=== PATIENT | male | born 1965 | race Caucasian/White ===

== ENCOUNTER 2020-09-06 20:49 | Inpatient (IN) | payer BC ==
[2020-09-06] MEDS ORDERED: SODIUM CHLORIDE 0.9% 500 ML INFUS.BAG IV ONE ×2 (20:57→23:39)
[2020-09-06 21:59] LABS: VENOUS BASE EXCESS -8.1 mmol/L (-2-2); VENOUS O2 SATURATION 55.8 % (70-80); VENOUS PCO2 53.9 mmHg (38-52); VENOUS PH 7.203 (7.310-7.410)
[2020-09-06 22:25] LABS: INR 1.46 (0.83-1.09); PROTHROMBIN TIME (PATIENT) 17.5 SEC (9.7-13.0)
[2020-09-06 22:28] LABS: ACTIVATED PTT 32.3 SECONDS (25.2-36.5)
[2020-09-06 22:30] LABS: LACTIC ACID 3.7 mmol/L (0.4-2.0)
[2020-09-06 22:39] LABS: BASO % 0.3 % (0-2.0); EOS % 0.1 % (0-4.5); HEMATOCRIT 45.6 % (35.4-49); HEMOGLOBIN 15.9 GM/dL (11.7-16.9); LYMPH % 3.4 % (8-40); MCH 32.6 pg (25.7-33.7); MCHC 34.9 g/dl (32.0-35.9); MEAN CELL VOLUME 93.5 fl (80-96); MONO % 14.1 % (3.8-10.2); NEUT % 82.1 % (42.8-82.8); PLATELET COUNT 195 K/MM3 (134-434); RBC 4.88 M/mm3 (4.00-5.60); RDW 12.6 % (11.9-15.9); WHITE BLOOD COUNT 7.5 K/mm3 (4.0-10.0)
[2020-09-06 22:43] LABS: CHLORIDE 90 mmol/L (98-107); SODIUM 128 mmol/L (136-145)
[2020-09-06 22:45] LABS: CALCIUM 8.9 mg/dL (8.5-10.1)
[2020-09-06 22:46] LABS: ANION GAP 15 MMOL/L (8-16); CO2 23 mmol/L (21-32)
[2020-09-06 22:48] LABS: BILIRUBIN,DIRECT 1.2 mg/dL (0.0-0.2); BLOOD UREA NITROGEN 23.1 mg/dL (7-18)
[2020-09-06 22:49] LABS: CREATININE 1.3 mg/dL (0.55-1.3); SGPT/ALT 20 U/L (13-61)
[2020-09-06 22:50] LABS: BILIRUBIN,TOTAL 1.7 mg/dL (0.2-1); LDH 210 U/L (87-246); TOT PROT 6.2 g/dl (6.4-8.2)
[2020-09-06 22:51] LABS: SGOT/AST 17 U/L (15-37)
[2020-09-06 22:52] LABS: ALK PHOS 68 U/L (45-117); N-TERMINAL BNP 896.9 pg/ml (5-125)
[2020-09-06 23:29] LABS: GLUCOSE,RANDOM 486 mg/dL (74-106)
[2020-09-06 23:56] LABS: ARTERIAL BLOOD GAS BASE EXCESS -7.3 mmol/L (-2-2); ARTERIAL BLOOD GAS PO2 108.2 mmHg (80-100); ARTERIAL BLOOD GAS pH 7.291 (7.350-7.450)
[2020-09-06 23:57] LABS: ARTERIAL BLD GAS O2 SATURATION 98.1 mmHg (95-98)
[2020-09-07] MEDS ORDERED: CEFTRIAXONE 1 GM in DEXTROSE 5%-WATER - 100 ML IVPB ONE (00:52)
[2020-09-07] MEDS ORDERED: AZITHROMYCIN IVPB 500 MG in DEXTROSE 5%-WATER - 250 ML IVPB ONE (00:52)
[2020-09-07] MEDS ORDERED: AZITHROMYCIN IVPB 500 MG/250 ML BAG IVPB ONE (01:56)
[2020-09-07] MEDS ORDERED: CEFTRIAXONE 2 GM/100 ML BAG IVPB ONE (01:56)
[2020-09-07 01:59] LABS: EPI CELLS 5 /uL (0-25.1); HYALINE CASTS 2 /uL (0-3.1); URINE APPEARANCE CLEAR; URINE BACTERIA 12 /uL (0-1359); URINE BILIRUBIN NEGATIVE (NEGATIVE); URINE COLOR YELLOW; URINE GLUCOSE (UA) 3+ (NEGATIVE); URINE KETONE 2+ (NEGATIVE); URINE LEUK ESTERASE NEGATIVE (NEGATIVE); URINE NITRITE NEGATIVE (NEGATIVE); URINE PROTEIN 1+ (NEGATIVE); URINE RBC 18 /uL (0-23.9); URINE WBC 6 /uL (0-25.8)
[2020-09-07 02:07] LABS: CHLORIDE 95 mmol/L (98-107); SODIUM 130 mmol/L (136-145)
[2020-09-07 02:08] LABS: CALCIUM 8.4 mg/dL (8.5-10.1)
[2020-09-07 02:09] LABS: BLOOD UREA NITROGEN 23.3 mg/dL (7-18); GLUCOSE,RANDOM 391 mg/dL (74-106)
[2020-09-07 02:12] LABS: CREATININE 1.1 mg/dL (0.55-1.3)
[2020-09-07 02:28] LABS: ANION GAP 14 MMOL/L (8-16); CO2 21 mmol/L (21-32)
[2020-09-07 02:38] LABS: LACTIC ACID 3.5 mmol/L (0.4-2.0)
[2020-09-07] MEDS ORDERED: SODIUM CHLORIDE 0.9% 500 ML INFUS.BAG IV ONE ×2 (03:24→12:40)
[2020-09-07] MEDS ORDERED: DEXAMETHASONE SOD PHOSPHATE 10 MG/1 ML VIAL IVPUSH ONE (05:22)
[2020-09-07] MEDS: POTASSIUM CHLORIDE ORAL LIQUID 20 MEQ/15 ML PO SCH ×2 (05:43→10:08)
[2020-09-07 09:08] LABS: BASO % 0.1 % (0-2.0); EOS % 0.2 % (0-4.5); HEMATOCRIT 45.5 % (35.4-49); HEMOGLOBIN 15.8 GM/dL (11.7-16.9); LYMPH % 5.6 % (8-40); MCH 32.6 pg (25.7-33.7); MCHC 34.7 g/dl (32.0-35.9); MEAN CELL VOLUME 94.1 fl (80-96); MONO % 12.9 % (3.8-10.2); NEUT % 81.2 % (42.8-82.8); PLATELET COUNT 323 K/MM3 (134-434); RBC 4.84 M/mm3 (4.00-5.60); RDW 12.4 % (11.9-15.9); WHITE BLOOD COUNT 8.3 K/mm3 (4.0-10.0)
[2020-09-07 09:17] LABS: CHLORIDE 102 mmol/L (98-107); SODIUM 139 mmol/L (136-145)
[2020-09-07 09:19] LABS: ALBUMIN 2.8 g/dl (3.4-5.0); ANION GAP 15 MMOL/L (8-16); BLOOD UREA NITROGEN 24.1 mg/dL (7-18); CALCIUM 8.7 mg/dL (8.5-10.1); CO2 22 mmol/L (21-32); GLUCOSE,RANDOM 325 mg/dL (74-106)
[2020-09-07 09:20] LABS: MAGNESIUM 2.3 mg/dL (1.8-2.4)
[2020-09-07 09:22] LABS: SGOT/AST 31 U/L (15-37); SGPT/ALT 30 U/L (13-61)
[2020-09-07 09:23] LABS: CREATININE 1.1 mg/dL (0.55-1.3); PHOSPHOROUS 4.2 mg/dL (2.5-4.9)
[2020-09-07 09:24] LABS: BILIRUBIN,TOTAL 1.2 mg/dL (0.2-1); TOT PROT 6.2 g/dl (6.4-8.2)
[2020-09-07 09:25] LABS: ALK PHOS 62 U/L (45-117)
[2020-09-07] MEDS ORDERED: METOPROLOL TARTRATE 5 MG/5 ML VIAL IVPUSH ONE (10:00)
[2020-09-07] MEDS ORDERED: FUROSEMIDE 40 MG/4 ML INJECTABLE VIAL IVPUSH ONE (10:00)
[2020-09-07] MEDS ORDERED: dilTIAZem HCL 125 MG/25 ML - 25 ML VIAL ONE ×2 (10:01→11:40)
[2020-09-07] MEDS: INSULIN SLIDING SCALE (NOVOLOG) 1 VIAL SQ SCH ×5 (10:09→21:50)
[2020-09-07] MEDS: HEPARIN NA (PORCINE) 5,000 UNITS/ML 1ML VIAL SQ SCH ×3 (10:09→21:20)
[2020-09-07] MEDS ORDERED: HEPARIN NA (PORCINE) 5,000 UNITS/ML 1ML VIAL ONE (10:10)
[2020-09-07] MEDS ORDERED: dilTIAZem HCL 50 MG/10 ML - 10 ML VIAL IVPUSH ONE ×4 (10:18→13:00)
[2020-09-07] MEDS ORDERED: PIPERACILLIN/TAZOB 3.375 GM 3.375 GM in DEXTROSE 5%-WATER - 50 ML IVPB ONE (10:45)
[2020-09-07] MEDS ORDERED: VANCOMYCIN 1 GM in D5W (PRE-DOCKED) 1,000 MG/250 ML IVPB ONE (11:00)
[2020-09-07 11:07] LABS: ARTERIAL BLOOD GAS BASE EXCESS -14.6 mmol/L (-2-2); ARTERIAL BLOOD GAS PO2 188.4 mmHg (80-100)
[2020-09-07 11:12] LABS: ARTERIAL BLD GAS O2 SATURATION 99.2 mmHg (95-98)
[2020-09-07 11:13] LABS: VENT MODE S/T
[2020-09-07 11:19] LABS: VENT RATE 14
[2020-09-07 11:20] LABS: ARTERIAL BLOOD GAS pH 7.108 (7.350-7.450)
[2020-09-07] MEDS ORDERED: ALBUTEROL SO4 HFA INHALER IH PRN (12:22)
[2020-09-07] MEDS ORDERED: SODIUM CHLORIDE 1,000 ML IV SCH (12:30)
[2020-09-07] MEDS: NOREPINEPHRINE BITARTRATE 16,000 MCG in SODIUM CHLORIDE 484 ML IV SCH (12:49)
[2020-09-07] MEDS: BUDESONIDE/FORMETEROL FUMARATE 160/4.5 mcg INHALER IH SCH ×2 (13:00→21:22)
[2020-09-07] MEDS: DILTIAZEM INJECTION 125 MG in SODIUM CHLORIDE 100 ML IVPB SCH (13:10)
[2020-09-07] MEDS: SODIUM BICARBONATE 8.4% - 75 MEQ in DEXTROSE 5%-WATER - 1,000 ML IV SCH ×2 (13:12→22:50)
[2020-09-07] MEDS ORDERED: DEXTROSE 5%-WATER - 50 ML IVPB ONE (13:57)
[2020-09-07] MEDS ORDERED: PIPERACILLIN/TAZOBACTAM 3.375 GM VIAL IVPB ONE (13:57)
[2020-09-07 15:48] LABS: CHLORIDE 105 mmol/L (98-107); SODIUM 137 mmol/L (136-145)
[2020-09-07] MEDS ORDERED: PROPOFOL 1,000,000 MCG/100 ML VIAL ONE (15:50)
[2020-09-07] MEDS ORDERED: SUCCINYLCHOLINE CHLORIDE 200 MG/10 ML VIAL ONE (15:50)
[2020-09-07 15:51] LABS: ANION GAP 10 MMOL/L (8-16); CALCIUM 7.9 mg/dL (8.5-10.1); CO2 22 mmol/L (21-32); GLUCOSE,RANDOM 370 mg/dL (74-106); MAGNESIUM 2.1 mg/dL (1.8-2.4)
[2020-09-07 15:52] LABS: BLOOD UREA NITROGEN 30.4 mg/dL (7-18)
[2020-09-07] MEDS ORDERED: FLU VACCINE (FLULAVAL) PF 60 MCG/0.5 ML SYRINGE 2020-2021 IM ONE (16:00)
[2020-09-07] MEDS ORDERED: FENTANYL NS IVPB 500 MCG/100 ML BAG IVPB SCH (16:00)
[2020-09-07] MEDS: MIDAZOLAM IN 0.9 % SOD.CHLORID 100 MG/100 ML PLAST..BAG IVPB SCH (16:00)
[2020-09-07] MEDS ORDERED: MIDAZOLAM IN 0.9 % SOD.CHLORID 1 MG/1 ML PLAST..BAG ONE (16:01)
[2020-09-07 16:09] LABS: LACTIC ACID 2.7 mmol/L (0.4-2.0)
[2020-09-07 17:07] LABS: ARTERIAL BLOOD GAS BASE EXCESS -11.6 mmol/L (-2-2)
[2020-09-07 17:09] LABS: ALLENS TEST POSITIVE; ARTERIAL BLD GAS O2 SATURATION 59.6 mmHg (95-98); VENT MODE A/C; VENT RATE 18
[2020-09-07 17:15] LABS: ARTERIAL BLOOD GAS PO2 32.6 mmHg (80-100); ARTERIAL BLOOD GAS pH 7.076 (7.350-7.450)
[2020-09-07] MEDS: FENTANYL NS IVPB 500 MCG/100 ML BAG IVPB SCH ×2 (17:30→21:37)
[2020-09-07] MEDS ORDERED: LACTATED RINGERS SOLUTION 1,000 ML/1,000 ML INFUS.BAG IV SCH (18:00)
[2020-09-07] MEDS: PIPERACILLIN/TAZOB 4.5 GM 4.5 GM in DEXTROSE 5%-WATER 100 ML IVPB SCH (18:00)
[2020-09-07 18:51] LABS: ARTERIAL BLOOD GAS BASE EXCESS -8.8 mmol/L (-2-2); ARTERIAL BLOOD GAS PO2 171.4 mmHg (80-100)
[2020-09-07 18:56] LABS: ALLENS TEST POSITIVE; ARTERIAL BLD GAS O2 SATURATION 98.9 mmHg (95-98)
[2020-09-07 18:57] LABS: VENT MODE AC; VENT RATE 23
[2020-09-07 19:01] LABS: ARTERIAL BLOOD GAS pH 7.152 (7.350-7.450)
[2020-09-07] MEDS ORDERED: PIPERACILLIN/TAZOBACTAM 4.5 GM VIAL IVPB ONE (19:21)
[2020-09-07] MEDS ORDERED: DEXTROSE 5%-WATER 100 ML IVPB ONE (19:21)
[2020-09-07 20:14] LABS: LACTIC ACID 2.2 mmol/L (0.4-2.0)
[2020-09-07 20:23] LABS: BLOOD UREA NITROGEN 29.1 mg/dL (7-18); CALCIUM 7.7 mg/dL (8.5-10.1)
[2020-09-07 20:27] LABS: CREATININE 0.8 mg/dL (0.55-1.3)
[2020-09-07] MEDS: INSULIN (LEVEMIR) 100 UNITS/ML UNITS SQ SCH (21:21)
[2020-09-07 22:34] LABS: HEMATOCRIT 38.9 % (35.4-49); HEMOGLOBIN 13.4 GM/dL (11.7-16.9); MCH 32.4 pg (25.7-33.7); MCHC 34.6 g/dl (32.0-35.9); MEAN CELL VOLUME 93.6 fl (80-96); MEAN PLT VOLUME 8.6 fl (7.5-11.1); PLATELET COUNT 174 K/MM3 (134-434); RBC 4.15 M/mm3 (4.00-5.60); RDW 12.9 % (11.9-15.9); WHITE BLOOD COUNT 5.1 K/mm3 (4.0-10.0)
[2020-09-07] MEDS: VANCOMYCIN 1 GRAM (PRE-DOCKED) 1,000 MG/250 ML BAG IVPB SCH (23:00)
[2020-09-08] MEDS: LACTATED RINGERS SOLUTION 1,000 ML/1,000 ML INFUS.BAG IV SCH ×2 (00:28→21:34)
[2020-09-08] MEDS ORDERED: PIPERACILLIN/TAZOBACTAM 4.5 GM VIAL IVPB ONE ×3 (00:33→17:14)
[2020-09-08] MEDS ORDERED: DEXTROSE 5%-WATER 100 ML IVPB ONE ×3 (00:34→17:14)
[2020-09-08] MEDS: PANTOPRAZOLE SODIUM 40 MG VIAL IVPUSH SCH ×2 (00:35→09:22)
[2020-09-08 01:20] LABS: CALCIUM 7.7 mg/dL (8.5-10.1)
[2020-09-08 01:21] LABS: BLOOD UREA NITROGEN 28.7 mg/dL (7-18)
[2020-09-08 01:24] LABS: CREATININE 0.9 mg/dL (0.55-1.3)
[2020-09-08] MEDS: PIPERACILLIN/TAZOB 4.5 GM 4.5 GM in DEXTROSE 5%-WATER 100 ML IVPB SCH ×3 (01:30→17:53)
[2020-09-08] MEDS: INSULIN SLIDING SCALE (NOVOLOG) 1 VIAL SQ SCH ×7 (02:15→23:40)
[2020-09-08] MEDS ORDERED: SODIUM CHLORIDE 1,000 ML IV STA (02:24)
[2020-09-08] MEDS: FENTANYL NS IVPB 500 MCG/100 ML BAG IVPB SCH ×4 (03:00→20:00)
[2020-09-08 06:10] LABS: ALLENS TEST POSITIVE; ARTERIAL BLOOD GAS BASE EXCESS -4.8 mmol/L (-2-2); ARTERIAL BLOOD GAS PO2 186.9 mmHg (80-100)
[2020-09-08 06:11] LABS: VENT MODE A/C; VENT RATE 23
[2020-09-08 06:55] LABS: INR 1.29 (0.83-1.09); PROTHROMBIN TIME (PATIENT) 15.8 SEC (9.7-13.0)
[2020-09-08 06:56] LABS: BASO % 0.1 % (0-2.0); HEMATOCRIT 35.5 % (35.4-49); HEMOGLOBIN 12.3 GM/dL (11.7-16.9); LYMPH % 4.3 % (8-40); MCH 32.7 pg (25.7-33.7); MCHC 34.7 g/dl (32.0-35.9); MEAN CELL VOLUME 94.3 fl (80-96); MEAN PLT VOLUME 8.8 fl (7.5-11.1); MONO % 6.3 % (3.8-10.2); NEUT % 89.3 % (42.8-82.8); PLATELET COUNT 142 K/MM3 (134-434); RBC 3.76 M/mm3 (4.00-5.60); WHITE BLOOD COUNT 5.7 K/mm3 (4.0-10.0)
[2020-09-08 06:58] LABS: ACTIVATED PTT 33.5 SECONDS (25.2-36.5)
[2020-09-08 07:21] LABS: CALCIUM 7.8 mg/dL (8.5-10.1)
[2020-09-08 07:22] LABS: MAGNESIUM 2.4 mg/dL (1.8-2.4)
[2020-09-08 07:23] LABS: BLOOD UREA NITROGEN 28.5 mg/dL (7-18)
[2020-09-08 07:25] LABS: CREATININE 0.9 mg/dL (0.55-1.3)
[2020-09-08 07:26] LABS: PHOSPHOROUS 2.1 mg/dL (2.5-4.9)
[2020-09-08 07:27] LABS: BILIRUBIN,TOTAL 0.8 mg/dL (0.2-1); TOT PROT 4.5 g/dl (6.4-8.2)
[2020-09-08 07:36] LABS: ALBUMIN 1.8 g/dl (3.4-5.0)
[2020-09-08] MEDS: INSULIN (LEVEMIR) 100 UNITS/ML UNITS SQ SCH ×2 (09:17→21:37)
[2020-09-08] MEDS: BUDESONIDE/FORMETEROL FUMARATE 160/4.5 mcg INHALER IH SCH ×2 (09:20→21:34)
[2020-09-08] MEDS ORDERED: AZITHROMYCIN IVPB 500 MG in DEXTROSE 5%-WATER - 250 ML IVPB SCH (10:00)
[2020-09-08] MEDS ORDERED: CEFTRIAXONE 1 GM in DEXTROSE 5%-WATER - 50 ML IVPB SCH (10:00)
[2020-09-08] MEDS: MIDAZOLAM IN 0.9 % SOD.CHLORID 100 MG/100 ML PLAST..BAG IVPB SCH ×2 (10:00→16:01)
[2020-09-08] MEDS: AZITHROMYCIN IVPB 500 MG/250 ML BAG IVPB SCH (10:06)
[2020-09-08] MEDS: VANCOMYCIN 1 GRAM (PRE-DOCKED) 1,000 MG/250 ML BAG IVPB SCH ×2 (11:34→23:39)
[2020-09-08] MEDS: methylPREDNISolone NA SUCC 40 MG/1 ML VIAL IVPUSH SCH ×2 (11:50→17:46)
[2020-09-08] MEDS ORDERED: ACETAMINOPHEN 325 MG TABLET (FP) PO PRN (13:53)
[2020-09-08] MEDS ORDERED: ACETAMINOPHEN INJECTION 100 ML IVPB ONE (14:00)
[2020-09-08] MEDS: DILTIAZEM INJECTION 125 MG in SODIUM CHLORIDE 100 ML IVPB SCH (14:02)
[2020-09-08] MEDS: NOREPINEPHRINE BITARTRATE 16,000 MCG in SODIUM CHLORIDE 484 ML IV SCH ×2 (14:02→21:34)
[2020-09-08] MEDS ORDERED: ACETAMINOPHEN 1000 MG/100 ML VIAL (NON FORMULARY) IVPB ONE (14:15)
[2020-09-08] MEDS ORDERED: LACTATED RINGERS SOLUTION 1000 ML INFUS.BAG IV ONE ×2 (17:03→17:45)
[2020-09-08] MEDS ORDERED: ACETAMINOPHEN 1000 MG/100 ML VIAL (NON FORMULARY) IVPB PRN (17:53)
[2020-09-08 20:11] LABS: HEMATOCRIT 36.6 % (35.4-49); HEMOGLOBIN 12.3 GM/dL (11.7-16.9); MCH 32.6 pg (25.7-33.7); MCHC 33.7 g/dl (32.0-35.9); MEAN CELL VOLUME 96.8 fl (80-96); MEAN PLT VOLUME 9.6 fl (7.5-11.1); PLATELET COUNT 135 K/MM3 (134-434); RBC 3.78 M/mm3 (4.00-5.60); RDW 13.6 % (11.9-15.9); WHITE BLOOD COUNT 5.5 K/mm3 (4.0-10.0)
[2020-09-09] MEDS: LACTATED RINGERS SOLUTION 1,000 ML/1,000 ML INFUS.BAG IV SCH ×2 (00:08→06:15)
[2020-09-09] MEDS ORDERED: DEXTROSE 5%-WATER 100 ML IVPB ONE ×3 (00:58→16:50)
[2020-09-09] MEDS ORDERED: PIPERACILLIN/TAZOBACTAM 4.5 GM VIAL IVPB ONE ×3 (00:58→16:50)
[2020-09-09] MEDS: PIPERACILLIN/TAZOB 4.5 GM 4.5 GM in DEXTROSE 5%-WATER 100 ML IVPB SCH ×3 (02:06→17:45)
[2020-09-09] MEDS: methylPREDNISolone NA SUCC 40 MG/1 ML VIAL IVPUSH SCH ×3 (02:06→17:46)
[2020-09-09] MEDS: INSULIN SLIDING SCALE (NOVOLOG) 1 VIAL SQ SCH ×6 (02:21→22:06)
[2020-09-09] MEDS: MIDAZOLAM IN 0.9 % SOD.CHLORID 100 MG/100 ML PLAST..BAG IVPB SCH ×3 (03:00→23:00)
[2020-09-09] MEDS: FENTANYL NS IVPB 500 MCG/100 ML BAG IVPB SCH ×2 (03:00→20:00)
[2020-09-09 06:48] LABS: ARTERIAL BLOOD GAS BASE EXCESS -4.9 mmol/L (-2-2); ARTERIAL BLOOD GAS PO2 91.9 mmHg (80-100); ARTERIAL BLOOD GAS pH 7.219 (7.350-7.450)
[2020-09-09 06:54] LABS: ALLENS TEST POSITIVE; VENT MODE A/C; VENT RATE 18
[2020-09-09 07:19] LABS: BASO % 0.2 % (0-2.0); EOS % 0.1 % (0-4.5); HEMATOCRIT 37.2 % (35.4-49); HEMOGLOBIN 12.8 GM/dL (11.7-16.9); LYMPH % 5.6 % (8-40); MCH 32.8 pg (25.7-33.7); MCHC 34.5 g/dl (32.0-35.9); MEAN PLT VOLUME 8.7 fl (7.5-11.1); MONO % 6.7 % (3.8-10.2); NEUT % 87.4 % (42.8-82.8); PLATELET COUNT 176 K/MM3 (134-434); RBC 3.91 M/mm3 (4.00-5.60); RDW 13.5 % (11.9-15.9); WHITE BLOOD COUNT 12.8 K/mm3 (4.0-10.0)
[2020-09-09 07:52] LABS: INR 1.13 (0.83-1.09); PROTHROMBIN TIME (PATIENT) 13.6 SEC (9.7-13.0)
[2020-09-09 07:54] LABS: CALCIUM 8.3 mg/dL (8.5-10.1)
[2020-09-09 07:55] LABS: ACTIVATED PTT 29.8 SECONDS (25.2-36.5); ALBUMIN 1.7 g/dl (3.4-5.0); BLOOD UREA NITROGEN 49.8 mg/dL (7-18); MAGNESIUM 2.9 mg/dL (1.8-2.4)
[2020-09-09 07:58] LABS: CREATININE 1.2 mg/dL (0.55-1.3); PHOSPHOROUS 2.9 mg/dL (2.5-4.9)
[2020-09-09 07:59] LABS: BILIRUBIN,TOTAL 0.7 mg/dL (0.2-1); TOT PROT 4.6 g/dl (6.4-8.2)
[2020-09-09] MEDS ORDERED: fentaNYL CITRATE 250 MCG/5 ML VIAL ONE (08:22)
[2020-09-09] MEDS: AZITHROMYCIN IVPB 500 MG/250 ML BAG IVPB SCH (09:04)
[2020-09-09 09:28] LABS: ANISOCYTOSIS 1+; MACROCYTOSIS 0; PLATELET ESTIMATE NORMAL
[2020-09-09] MEDS: PANTOPRAZOLE SODIUM 40 MG VIAL IVPUSH SCH (09:42)
[2020-09-09] MEDS: BUDESONIDE/FORMETEROL FUMARATE 160/4.5 mcg INHALER IH SCH ×2 (12:02→21:19)
[2020-09-09] MEDS: INSULIN (LEVEMIR) 100 UNITS/ML UNITS SQ SCH ×2 (12:03→21:19)
[2020-09-09] MEDS: VANCOMYCIN 1 GRAM (PRE-DOCKED) 1,000 MG/250 ML BAG IVPB SCH ×2 (12:09→23:15)
[2020-09-09] MEDS: DILTIAZEM INJECTION 125 MG in SODIUM CHLORIDE 100 ML IVPB SCH (17:44)
[2020-09-09] MEDS: VASOPRESSIN 40 UNITS in SODIUM CHLORIDE 98 ML IVPB SCH (20:34)
[2020-09-09] MEDS: NOREPINEPHRINE BITARTRATE 16,000 MCG in SODIUM CHLORIDE 484 ML IV SCH (22:39)
[2020-09-10] MEDS: LACTATED RINGERS SOLUTION 1,000 ML/1,000 ML INFUS.BAG IV SCH
[2020-09-10] MEDS: FENTANYL NS IVPB 500 MCG/100 ML BAG IVPB SCH ×5 (01:00→17:38)
[2020-09-10] MEDS ORDERED: DEXTROSE 5%-WATER 100 ML IVPB ONE ×3 (01:03→17:13)
[2020-09-10] MEDS ORDERED: PIPERACILLIN/TAZOBACTAM 4.5 GM VIAL IVPB ONE ×3 (01:03→17:13)
[2020-09-10] MEDS: PIPERACILLIN/TAZOB 4.5 GM 4.5 GM in DEXTROSE 5%-WATER 100 ML IVPB SCH ×3 (01:16→17:40)
[2020-09-10] MEDS: methylPREDNISolone NA SUCC 40 MG/1 ML VIAL IVPUSH SCH ×3 (01:16→17:40)
[2020-09-10] MEDS: INSULIN SLIDING SCALE (NOVOLOG) 1 VIAL SQ SCH ×6 (03:20→22:47)
[2020-09-10 06:00] LABS: ARTERIAL BLD GAS O2 SATURATION 90.1 mmHg (95-98); ARTERIAL BLOOD GAS BASE EXCESS -2.9 mmol/L (-2-2); ARTERIAL BLOOD GAS PO2 69.1 mmHg (80-100); ARTERIAL BLOOD GAS pH 7.231 (7.350-7.450)
[2020-09-10 06:02] LABS: ALLENS TEST POSITIVE; VENT MODE A/C; VENT RATE 18
[2020-09-10 07:00] LABS: BASO % 0.2 % (0-2.0); HEMOGLOBIN 12.8 GM/dL (11.7-16.9); LYMPH % 4.6 % (8-40); MCHC 33.5 g/dl (32.0-35.9); MEAN CELL VOLUME 95.5 fl (80-96); MEAN PLT VOLUME 8.8 fl (7.5-11.1); MONO % 6.7 % (3.8-10.2); NEUT % 88.5 % (42.8-82.8); PLATELET COUNT 151 K/MM3 (134-434); RBC 3.98 M/mm3 (4.00-5.60); RDW 13.7 % (11.9-15.9); WHITE BLOOD COUNT 17.4 K/mm3 (4.0-10.0)
[2020-09-10 07:14] LABS: ALBUMIN 1.7 g/dl (3.4-5.0); CALCIUM 8.2 mg/dL (8.5-10.1)
[2020-09-10 07:15] LABS: BLOOD UREA NITROGEN 59.6 mg/dL (7-18); MAGNESIUM 2.8 mg/dL (1.8-2.4)
[2020-09-10 07:17] LABS: CREATININE 1.1 mg/dL (0.55-1.3)
[2020-09-10 07:18] LABS: PHOSPHOROUS 2.8 mg/dL (2.5-4.9)
[2020-09-10 07:19] LABS: BILIRUBIN,TOTAL 0.4 mg/dL (0.2-1); TOT PROT 4.8 g/dl (6.4-8.2)
[2020-09-10] MEDS: NOREPINEPHRINE BITARTRATE 16,000 MCG in SODIUM CHLORIDE 484 ML IV SCH ×2 (08:48→13:51)
[2020-09-10] MEDS: PANTOPRAZOLE SODIUM 40 MG VIAL IVPUSH SCH (09:14)
[2020-09-10] MEDS: BUDESONIDE/FORMETEROL FUMARATE 160/4.5 mcg INHALER IH SCH ×2 (09:16→22:12)
[2020-09-10] MEDS: INSULIN (LEVEMIR) 100 UNITS/ML UNITS SQ SCH ×2 (09:16→22:48)
[2020-09-10 10:00] LABS: ANISOCYTOSIS 0; MACROCYTOSIS 0; PLATELET ESTIMATE DECREASED
[2020-09-10] MEDS: MIDAZOLAM IN 0.9 % SOD.CHLORID 100 MG/100 ML PLAST..BAG IVPB SCH (10:00)
[2020-09-10] MEDS: AZITHROMYCIN IVPB 500 MG/250 ML BAG IVPB SCH (10:44)
[2020-09-10] MEDS: VANCOMYCIN/WATER BAGS 1,250 MG/250 ML BAG IVPB SCH (12:05)
[2020-09-10] MEDS: DILTIAZEM INJECTION 125 MG in SODIUM CHLORIDE 100 ML IVPB SCH (12:46)
[2020-09-10] MEDS: HEPARIN NA (PORCINE) 5,000 UNITS/ML 1ML VIAL SQ SCH (22:47)
[2020-09-11] MEDS: INSULIN SLIDING SCALE (NOVOLOG) 1 VIAL SQ SCH ×4 (00:09→18:43)
[2020-09-11] MEDS: VANCOMYCIN/WATER BAGS 1,250 MG/250 ML BAG IVPB SCH ×3 (00:49→23:46)
[2020-09-11] MEDS: LACTATED RINGERS SOLUTION 1,000 ML/1,000 ML INFUS.BAG IV SCH ×2 (00:50→21:42)
[2020-09-11] MEDS ORDERED: PIPERACILLIN/TAZOBACTAM 4.5 GM VIAL IVPB ONE ×4 (01:36→19:54)
[2020-09-11] MEDS ORDERED: DEXTROSE 5%-WATER 100 ML IVPB ONE ×4 (01:37→19:54)
[2020-09-11] MEDS: PIPERACILLIN/TAZOB 4.5 GM 4.5 GM in DEXTROSE 5%-WATER 100 ML IVPB SCH ×3 (02:35→18:36)
[2020-09-11] MEDS: methylPREDNISolone NA SUCC 40 MG/1 ML VIAL IVPUSH SCH ×3 (02:35→18:36)
[2020-09-11] MEDS: HEPARIN NA (PORCINE) 5,000 UNITS/ML 1ML VIAL SQ SCH ×3 (06:15→21:42)
[2020-09-11 06:26] LABS: HEMATOCRIT 36.6 % (35.4-49); HEMOGLOBIN 12.2 GM/dL (11.7-16.9); MCHC 33.4 g/dl (32.0-35.9); MEAN PLT VOLUME 9.5 fl (7.5-11.1); PLATELET COUNT 140 K/MM3 (134-434); RBC 3.82 M/mm3 (4.00-5.60); RDW 13.5 % (11.9-15.9)
[2020-09-11 06:32] LABS: BLOOD UREA NITROGEN 45.7 mg/dL (7-18)
[2020-09-11 06:33] LABS: MAGNESIUM 2.5 mg/dL (1.8-2.4)
[2020-09-11 06:36] LABS: CREATININE 0.8 mg/dL (0.55-1.3); PHOSPHOROUS 2.2 mg/dL (2.5-4.9)
[2020-09-11] MEDS: VASOPRESSIN 40 UNITS in SODIUM CHLORIDE 98 ML IVPB SCH ×2 (08:23→21:41)
[2020-09-11] MEDS ORDERED: PT OWN MED DRAWER 7, Y5N ONE (09:00)
[2020-09-11] MEDS: PANTOPRAZOLE SODIUM 40 MG VIAL IVPUSH SCH (09:14)
[2020-09-11] MEDS: BUDESONIDE/FORMETEROL FUMARATE 160/4.5 mcg INHALER IH SCH ×2 (09:14→21:42)
[2020-09-11] MEDS: INSULIN (LEVEMIR) 100 UNITS/ML UNITS SQ SCH ×2 (09:19→21:45)
[2020-09-11] MEDS: FENTANYL NS IVPB 500 MCG/100 ML BAG IVPB SCH ×4 (11:00→22:23)
[2020-09-11] MEDS: DILTIAZEM INJECTION 125 MG in SODIUM CHLORIDE 100 ML IVPB SCH (12:15)
[2020-09-11] MEDS: NOREPINEPHRINE BITARTRATE 16,000 MCG in SODIUM CHLORIDE 484 ML IV SCH (12:15)
[2020-09-11] MEDS: MIDAZOLAM IN 0.9 % SOD.CHLORID 100 MG/100 ML PLAST..BAG IVPB SCH ×2 (18:33→23:48)
[2020-09-11] MEDS ORDERED: INSULIN REGULAR HUMAN 100 UNITS/ML *VIAL IVPUSH ONE (21:23)
[2020-09-12] MEDS: INSULIN SLIDING SCALE (NOVOLOG) 1 VIAL SQ SCH ×5 (00:07→23:59)
[2020-09-12] MEDS: methylPREDNISolone NA SUCC 40 MG/1 ML VIAL IVPUSH SCH ×3 (01:30→18:48)
[2020-09-12] MEDS: PIPERACILLIN/TAZOB 4.5 GM 4.5 GM in DEXTROSE 5%-WATER 100 ML IVPB SCH ×3 (01:31→18:48)
[2020-09-12] MEDS: FENTANYL NS IVPB 500 MCG/100 ML BAG IVPB SCH ×2 (03:00→19:08)
[2020-09-12 06:23] LABS: ARTERIAL BLD GAS O2 SATURATION 96.8 mmHg (95-98); ARTERIAL BLOOD GAS BASE EXCESS 7.6 mmol/L (-2-2); ARTERIAL BLOOD GAS PO2 90.7 mmHg (80-100); ARTERIAL BLOOD GAS pH 7.403 (7.350-7.450)
[2020-09-12] MEDS: HEPARIN NA (PORCINE) 5,000 UNITS/ML 1ML VIAL SQ SCH ×3 (06:37→21:10)
[2020-09-12 06:42] LABS: ALLENS TEST POSITIVE
[2020-09-12 06:43] LABS: VENT MODE A/C; VENT RATE 18
[2020-09-12 06:53] LABS: BASO % 0.1 % (0-2.0); HEMATOCRIT 36.3 % (35.4-49); HEMOGLOBIN 12.4 GM/dL (11.7-16.9); LYMPH % 4.3 % (8-40); MCH 32.4 pg (25.7-33.7); MCHC 34.1 g/dl (32.0-35.9); MEAN CELL VOLUME 94.9 fl (80-96); MEAN PLT VOLUME 9.1 fl (7.5-11.1); MONO % 8.4 % (3.8-10.2); NEUT % 87.2 % (42.8-82.8); PLATELET COUNT 144 K/MM3 (134-434); RBC 3.82 M/mm3 (4.00-5.60); RDW 13.3 % (11.9-15.9); WHITE BLOOD COUNT 12.5 K/mm3 (4.0-10.0)
[2020-09-12 07:16] LABS: ALBUMIN 1.5 g/dl (3.4-5.0); BLOOD UREA NITROGEN 37.2 mg/dL (7-18); CALCIUM 7.7 mg/dL (8.5-10.1)
[2020-09-12 07:17] LABS: MAGNESIUM 2.3 mg/dL (1.8-2.4)
[2020-09-12 07:19] LABS: CREATININE 0.6 mg/dL (0.55-1.3)
[2020-09-12 07:20] LABS: BILIRUBIN,TOTAL 0.4 mg/dL (0.2-1); PHOSPHOROUS 3.1 mg/dL (2.5-4.9); TOT PROT 4.4 g/dl (6.4-8.2)
[2020-09-12] MEDS ORDERED: DEXTROSE 5%-WATER 100 ML IVPB ONE ×3 (08:04→20:43)
[2020-09-12] MEDS ORDERED: PIPERACILLIN/TAZOBACTAM 4.5 GM VIAL IVPB ONE ×3 (08:04→20:43)
[2020-09-12] MEDS: PANTOPRAZOLE SODIUM 40 MG VIAL IVPUSH SCH (10:24)
[2020-09-12] MEDS: BUDESONIDE/FORMETEROL FUMARATE 160/4.5 mcg INHALER IH SCH ×2 (10:25→21:10)
[2020-09-12] MEDS: INSULIN (LEVEMIR) 100 UNITS/ML UNITS SQ SCH ×2 (10:27→21:10)
[2020-09-12] MEDS ORDERED: PT OWN MED DRAWER 7, Y5N ONE (12:41)
[2020-09-12] MEDS: VANCOMYCIN/WATER BAGS 1,250 MG/250 ML BAG IVPB SCH (12:46)
[2020-09-12] MEDS: NOREPINEPHRINE BITARTRATE 16,000 MCG in SODIUM CHLORIDE 484 ML IV SCH (12:47)
[2020-09-12] MEDS: MIDAZOLAM IN 0.9 % SOD.CHLORID 100 MG/100 ML PLAST..BAG IVPB SCH (18:37)
[2020-09-12] MEDS ORDERED: PROPOFOL 1,000,000 MCG/100 ML VIAL ONE (19:53)
[2020-09-12] MEDS: PROPOFOL 1,000,000 MCG/100 ML VIAL IVPB SCH (20:00)
[2020-09-12] MEDS: LACTATED RINGERS SOLUTION 1,000 ML/1,000 ML INFUS.BAG IV SCH (21:09)
[2020-09-12] MEDS: VASOPRESSIN 40 UNITS in SODIUM CHLORIDE 98 ML IVPB SCH (21:09)
[2020-09-13] MEDS: PIPERACILLIN/TAZOB 4.5 GM 4.5 GM in DEXTROSE 5%-WATER 100 ML IVPB SCH ×3 (01:22→17:06)
[2020-09-13] MEDS: methylPREDNISolone NA SUCC 40 MG/1 ML VIAL IVPUSH SCH ×2 (01:22→10:02)
[2020-09-13] MEDS: FENTANYL NS IVPB 500 MCG/100 ML BAG IVPB SCH ×5 (01:23→17:30)
[2020-09-13] MEDS: MIDAZOLAM IN 0.9 % SOD.CHLORID 100 MG/100 ML PLAST..BAG IVPB SCH ×2 (04:00→16:00)
[2020-09-13] MEDS: LACTATED RINGERS SOLUTION 1,000 ML/1,000 ML INFUS.BAG IV SCH (06:19)
[2020-09-13] MEDS: PROPOFOL 1,000,000 MCG/100 ML VIAL IVPB SCH ×3 (06:20→18:00)
[2020-09-13] MEDS: HEPARIN NA (PORCINE) 5,000 UNITS/ML 1ML VIAL SQ SCH ×3 (06:22→21:45)
[2020-09-13] MEDS: INSULIN SLIDING SCALE (NOVOLOG) 1 VIAL SQ SCH ×3 (06:23→17:00)
[2020-09-13 06:53] LABS: HEMATOCRIT 35.8 % (35.4-49); HEMOGLOBIN 12.2 GM/dL (11.7-16.9); MCH 32.4 pg (25.7-33.7); MEAN CELL VOLUME 95.2 fl (80-96); MEAN PLT VOLUME 9.3 fl (7.5-11.1); PLATELET COUNT 180 K/MM3 (134-434); RBC 3.76 M/mm3 (4.00-5.60); RDW 13.2 % (11.9-15.9); WHITE BLOOD COUNT 11.2 K/mm3 (4.0-10.0)
[2020-09-13 07:15] LABS: CALCIUM 7.6 mg/dL (8.5-10.1)
[2020-09-13 07:16] LABS: ALBUMIN 1.5 g/dl (3.4-5.0); BLOOD UREA NITROGEN 32.3 mg/dL (7-18)
[2020-09-13 07:19] LABS: CREATININE 0.6 mg/dL (0.55-1.3)
[2020-09-13 07:20] LABS: BILIRUBIN,TOTAL 0.4 mg/dL (0.2-1); TOT PROT 4.3 g/dl (6.4-8.2)
[2020-09-13] MEDS ORDERED: DEXTROSE 5%-WATER 100 ML IVPB ONE (08:43)
[2020-09-13] MEDS ORDERED: PIPERACILLIN/TAZOBACTAM 4.5 GM VIAL IVPB ONE (08:43)
[2020-09-13] MEDS: PANTOPRAZOLE SODIUM 40 MG VIAL IVPUSH SCH (10:03)
[2020-09-13] MEDS: BUDESONIDE/FORMETEROL FUMARATE 160/4.5 mcg INHALER IH SCH ×2 (10:17→22:00)
[2020-09-13] MEDS: INSULIN (LEVEMIR) 100 UNITS/ML UNITS SQ SCH ×2 (11:01→21:59)
[2020-09-13] MEDS: NOREPINEPHRINE BITARTRATE 16,000 MCG in SODIUM CHLORIDE 484 ML IV SCH (12:15)
[2020-09-13] MEDS ORDERED: PT OWN MED DRAWER 7, Y5N ONE (12:29)
[2020-09-13] MEDS: VANCOMYCIN/WATER BAGS 1,250 MG/250 ML BAG IVPB SCH ×2 (12:30)
[2020-09-13 13:36] VITALS: BMI 31.8
[2020-09-13] MEDS: VASOPRESSIN 40 UNITS in SODIUM CHLORIDE 98 ML IVPB SCH (20:00)
[2020-09-14] MEDS: LACTATED RINGERS SOLUTION 1,000 ML/1,000 ML INFUS.BAG IV SCH (00:05)
[2020-09-14] MEDS: INSULIN SLIDING SCALE (NOVOLOG) 1 VIAL SQ SCH ×5 (00:26→18:07)
[2020-09-14] MEDS ORDERED: DEXTROSE 5%-WATER 100 ML IVPB ONE ×3 (00:51→17:43)
[2020-09-14] MEDS ORDERED: PIPERACILLIN/TAZOBACTAM 4.5 GM VIAL IVPB ONE ×3 (00:51→17:43)
[2020-09-14] MEDS: PIPERACILLIN/TAZOB 4.5 GM 4.5 GM in DEXTROSE 5%-WATER 100 ML IVPB SCH ×3 (01:13→18:08)
[2020-09-14] MEDS: PROPOFOL 1,000,000 MCG/100 ML VIAL IVPB SCH ×3 (05:20→21:57)
[2020-09-14] MEDS: HEPARIN NA (PORCINE) 5,000 UNITS/ML 1ML VIAL SQ SCH ×3 (06:45→21:58)
[2020-09-14 07:40] LABS: HEMATOCRIT 39.4 % (35.4-49); HEMOGLOBIN 13.1 GM/dL (11.7-16.9); MCH 31.8 pg (25.7-33.7); MCHC 33.2 g/dl (32.0-35.9); MEAN CELL VOLUME 95.9 fl (80-96); MEAN PLT VOLUME 9.4 fl (7.5-11.1); PLATELET COUNT 218 K/MM3 (134-434); RBC 4.11 M/mm3 (4.00-5.60); RDW 13.4 % (11.9-15.9); WHITE BLOOD COUNT 16.4 K/mm3 (4.0-10.0)
[2020-09-14 07:41] LABS: ALBUMIN 1.6 g/dl (3.4-5.0); CALCIUM 7.9 mg/dL (8.5-10.1)
[2020-09-14 07:45] LABS: CREATININE 0.6 mg/dL (0.55-1.3)
[2020-09-14 07:46] LABS: BILIRUBIN,TOTAL 0.5 mg/dL (0.2-1); TOT PROT 4.8 g/dl (6.4-8.2)
[2020-09-14 08:11] LABS: MAGNESIUM 2.4 mg/dL (1.8-2.4)
[2020-09-14 08:15] LABS: PHOSPHOROUS 2.9 mg/dL (2.5-4.9)
[2020-09-14] MEDS ORDERED: PT OWN MED DRAWER 7, Y5N ONE (08:57)
[2020-09-14] MEDS: DEXTROSE 5%-WATER - 1,000 ML IV SCH ×2 (09:00→21:58)
[2020-09-14] MEDS: PANTOPRAZOLE SODIUM 40 MG VIAL IVPUSH SCH (09:00)
[2020-09-14] MEDS: BUDESONIDE/FORMETEROL FUMARATE 160/4.5 mcg INHALER IH SCH ×2 (09:00→21:59)
[2020-09-14] MEDS: INSULIN (LEVEMIR) 100 UNITS/ML UNITS SQ SCH ×2 (09:19→21:58)
[2020-09-14] MEDS: FENTANYL NS IVPB 500 MCG/100 ML BAG IVPB SCH ×4 (10:39→21:22)
[2020-09-14] MEDS: MIDAZOLAM IN 0.9 % SOD.CHLORID 100 MG/100 ML PLAST..BAG IVPB SCH ×3 (10:39→21:23)
[2020-09-14] MEDS: NOREPINEPHRINE BITARTRATE 16,000 MCG in SODIUM CHLORIDE 484 ML IV SCH (11:19)
[2020-09-14 13:58] LABS: CALCIUM 8.2 mg/dL (8.5-10.1)
[2020-09-14 13:59] LABS: BLOOD UREA NITROGEN 25.2 mg/dL (7-18)
[2020-09-14 14:02] LABS: CREATININE 0.6 mg/dL (0.55-1.3)
[2020-09-14] MEDS ORDERED: ACETAMINOPHEN INJECTION 100 ML IVPB ONE (19:09)
[2020-09-14] MEDS: ACETAMINOPHEN 1000 MG/100 ML VIAL (NON FORMULARY) IVPB PRN (19:10)
[2020-09-14 21:56] LABS: EPI CELLS >36 /uL (0-25.1); HYALINE CASTS 6 /uL (0-3.1); PH,URINE 5.5 (5.0-8.0); URINE APPEARANCE CLOUDY; URINE BACTERIA 82 /uL (0-1359); URINE BILIRUBIN NEGATIVE (NEGATIVE); URINE COLOR YELLOW; URINE GLUCOSE (UA) 3+ (NEGATIVE); URINE KETONE 1+ (NEGATIVE); URINE LEUK ESTERASE NEGATIVE (NEGATIVE); URINE NITRITE NEGATIVE (NEGATIVE); URINE PROTEIN 1+ (NEGATIVE); URINE RBC 1728 /uL (0-23.9); URINE UROBILINOGEN 0.2 mg/dL (0.2-1.0); URINE WBC 22 /uL (0-25.8)
[2020-09-14] MEDS: VASOPRESSIN 40 UNITS in SODIUM CHLORIDE 98 ML IVPB SCH (21:56)
[2020-09-15] MEDS ORDERED: PIPERACILLIN/TAZOBACTAM 4.5 GM VIAL IVPB ONE ×4 (02:04→23:36)
[2020-09-15] MEDS ORDERED: DEXTROSE 5%-WATER 100 ML IVPB ONE ×4 (02:04→23:36)
[2020-09-15] MEDS: INSULIN SLIDING SCALE (NOVOLOG) 1 VIAL SQ SCH ×4 (02:10→17:39)
[2020-09-15] MEDS: PIPERACILLIN/TAZOB 4.5 GM 4.5 GM in DEXTROSE 5%-WATER 100 ML IVPB SCH ×3 (02:11→17:40)
[2020-09-15] MEDS: FENTANYL NS IVPB 500 MCG/100 ML BAG IVPB SCH ×5 (03:11→20:45)
[2020-09-15] MEDS: HEPARIN NA (PORCINE) 5,000 UNITS/ML 1ML VIAL SQ SCH ×3 (05:27→20:59)
[2020-09-15] MEDS: PROPOFOL 1,000,000 MCG/100 ML VIAL IVPB SCH ×3 (05:47→20:58)
[2020-09-15 07:07] LABS: HEMATOCRIT 36.8 % (35.4-49); HEMOGLOBIN 12.3 GM/dL (11.7-16.9); MCH 32.2 pg (25.7-33.7); MCHC 33.5 g/dl (32.0-35.9); MEAN CELL VOLUME 96.2 fl (80-96); MEAN PLT VOLUME 9.2 fl (7.5-11.1); PLATELET COUNT 198 K/MM3 (134-434); RBC 3.82 M/mm3 (4.00-5.60); RDW 13.1 % (11.9-15.9); WHITE BLOOD COUNT 15.5 K/mm3 (4.0-10.0)
[2020-09-15 07:33] LABS: ALBUMIN 1.4 g/dl (3.4-5.0)
[2020-09-15 07:34] LABS: BLOOD UREA NITROGEN 23.8 mg/dL (7-18); MAGNESIUM 2.2 mg/dL (1.8-2.4)
[2020-09-15 07:36] LABS: CREATININE 0.5 mg/dL (0.55-1.3)
[2020-09-15 07:38] LABS: BILIRUBIN,TOTAL 0.4 mg/dL (0.2-1); PHOSPHOROUS 2.8 mg/dL (2.5-4.9); TOT PROT 4.6 g/dl (6.4-8.2)
[2020-09-15] MEDS: PANTOPRAZOLE SODIUM 40 MG VIAL IVPUSH SCH (09:01)
[2020-09-15] MEDS: BUDESONIDE/FORMETEROL FUMARATE 160/4.5 mcg INHALER IH SCH ×2 (09:02→20:59)
[2020-09-15] MEDS: INSULIN (LEVEMIR) 100 UNITS/ML UNITS SQ SCH ×2 (09:04→20:59)
[2020-09-15] MEDS: DEXTROSE 5%-WATER - 1,000 ML IV SCH (12:12)
[2020-09-15] MEDS: NOREPINEPHRINE BITARTRATE 16,000 MCG in SODIUM CHLORIDE 484 ML IV SCH (12:48)
[2020-09-15] MEDS: MIDAZOLAM IN 0.9 % SOD.CHLORID 100 MG/100 ML PLAST..BAG IVPB SCH (16:40)
[2020-09-15] MEDS: ACETAMINOPHEN 1000 MG/100 ML VIAL (NON FORMULARY) IVPB PRN (17:24)
[2020-09-15] MEDS: VASOPRESSIN 40 UNITS in SODIUM CHLORIDE 98 ML IVPB SCH (20:46)
[2020-09-16] MEDS ORDERED: ACETAMINOPHEN INJECTION 100 ML IVPB ONE (00:40)
[2020-09-16] MEDS ORDERED: ACETAMINOPHEN 1000 MG/100 ML VIAL (NON FORMULARY) IVPB ONE ×2 (00:42→18:06)
[2020-09-16] MEDS: INSULIN SLIDING SCALE (NOVOLOG) 1 VIAL SQ SCH ×4 (00:44→18:09)
[2020-09-16] MEDS: DEXTROSE 5%-WATER - 1,000 ML IV SCH (00:44)
[2020-09-16] MEDS: PIPERACILLIN/TAZOB 4.5 GM 4.5 GM in DEXTROSE 5%-WATER 100 ML IVPB SCH ×3 (02:06→17:07)
[2020-09-16] MEDS ORDERED: ALBUTEROL SO4 0.083% IH SOL 2.5 MG/3 ML VIAL.NEB. NEB ONE (04:45)
[2020-09-16] MEDS: ALBUTEROL SO4 0.083% IH SOL 2.5 MG/3 ML VIAL.NEB. NEB PRN ×3 (05:00→21:15)
[2020-09-16] MEDS: HEPARIN NA (PORCINE) 5,000 UNITS/ML 1ML VIAL SQ SCH ×3 (05:25→21:50)
[2020-09-16] MEDS: FENTANYL NS IVPB 500 MCG/100 ML BAG IVPB SCH ×2 (05:38→17:28)
[2020-09-16] MEDS: MIDAZOLAM IN 0.9 % SOD.CHLORID 100 MG/100 ML PLAST..BAG IVPB SCH ×2 (05:38→17:06)
[2020-09-16] MEDS: PROPOFOL 1,000,000 MCG/100 ML VIAL IVPB SCH ×2 (05:38→20:00)
[2020-09-16 07:40] LABS: HEMATOCRIT 34.1 % (35.4-49); HEMOGLOBIN 11.5 GM/dL (11.7-16.9); MCH 32.6 pg (25.7-33.7); MCHC 33.7 g/dl (32.0-35.9); MEAN CELL VOLUME 96.9 fl (80-96); MEAN PLT VOLUME 9.4 fl (7.5-11.1); PLATELET COUNT 183 K/MM3 (134-434); RBC 3.52 M/mm3 (4.00-5.60); WHITE BLOOD COUNT 16.6 K/mm3 (4.0-10.0)
[2020-09-16 07:52] LABS: CALCIUM 7.8 mg/dL (8.5-10.1)
[2020-09-16 07:53] LABS: ALBUMIN 1.2 g/dl (3.4-5.0); BLOOD UREA NITROGEN 20.6 mg/dL (7-18)
[2020-09-16 07:55] LABS: CREATININE 0.5 mg/dL (0.55-1.3)
[2020-09-16 07:56] LABS: BILIRUBIN,TOTAL 0.4 mg/dL (0.2-1)
[2020-09-16 07:57] LABS: TOT PROT 4.4 g/dl (6.4-8.2)
[2020-09-16] MEDS ORDERED: DEXTROSE 5%-WATER 100 ML IVPB ONE ×3 (09:43→21:12)
[2020-09-16] MEDS ORDERED: PIPERACILLIN/TAZOBACTAM 4.5 GM VIAL IVPB ONE ×3 (09:43→21:12)
[2020-09-16] MEDS: PANTOPRAZOLE SODIUM 40 MG VIAL IVPUSH SCH (09:52)
[2020-09-16] MEDS ORDERED: PT OWN MED DRAWER 7, Y5N ONE (10:11)
[2020-09-16] MEDS: INSULIN (LEVEMIR) 100 UNITS/ML UNITS SQ SCH ×2 (10:39→22:00)
[2020-09-16] MEDS: LACTATED RINGERS SOLUTION 1,000 ML/1,000 ML INFUS.BAG IV SCH (13:21)
[2020-09-16] MEDS: BUDESONIDE/FORMETEROL FUMARATE 160/4.5 mcg INHALER IH SCH ×2 (13:38→21:53)
[2020-09-16] MEDS ORDERED: SODIUM CHLORIDE 1,000 ML IV STA (22:02)
[2020-09-16] MEDS ORDERED: LACTATED RINGERS SOLUTION 1,000 ML/1,000 ML INFUS.BAG IV STA (23:51)
[2020-09-17] MEDS: INSULIN SLIDING SCALE (NOVOLOG) 1 VIAL SQ SCH ×4 (00:09→17:52)
[2020-09-17] MEDS: PIPERACILLIN/TAZOB 4.5 GM 4.5 GM in DEXTROSE 5%-WATER 100 ML IVPB SCH ×3 (02:00→17:53)
[2020-09-17] MEDS ORDERED: PIPERACILLIN/TAZOBACTAM 4.5 GM VIAL IVPB ONE ×4 (04:23→23:39)
[2020-09-17] MEDS ORDERED: DEXTROSE 5%-WATER 100 ML IVPB ONE ×4 (04:23→23:39)
[2020-09-17] MEDS: HEPARIN NA (PORCINE) 5,000 UNITS/ML 1ML VIAL SQ SCH ×2 (06:45→15:54)
[2020-09-17] MEDS: NOREPINEPHRINE D5W PREMIX 16,000 MCG/500 ML BAG IVPB SCH (06:45)
[2020-09-17 07:29] LABS: HEMATOCRIT 34.1 % (35.4-49); HEMOGLOBIN 11.6 GM/dL (11.7-16.9); MCH 32.6 pg (25.7-33.7); MCHC 33.9 g/dl (32.0-35.9); MEAN PLT VOLUME 9.1 fl (7.5-11.1); PLATELET COUNT 193 K/MM3 (134-434); RBC 3.55 M/mm3 (4.00-5.60); WHITE BLOOD COUNT 16.1 K/mm3 (4.0-10.0)
[2020-09-17 07:50] LABS: CALCIUM 7.9 mg/dL (8.5-10.1)
[2020-09-17 07:51] LABS: ALBUMIN 1.2 g/dl (3.4-5.0); BLOOD UREA NITROGEN 23.2 mg/dL (7-18)
[2020-09-17 07:54] LABS: CREATININE 0.5 mg/dL (0.55-1.3)
[2020-09-17 07:55] LABS: BILIRUBIN,TOTAL 0.2 mg/dL (0.2-1); TOT PROT 4.5 g/dl (6.4-8.2)
[2020-09-17] MEDS: PANTOPRAZOLE SODIUM 40 MG VIAL IVPUSH SCH (10:31)
[2020-09-17] MEDS: BUDESONIDE/FORMETEROL FUMARATE 160/4.5 mcg INHALER IH SCH (10:32)
[2020-09-17] MEDS: INSULIN (LEVEMIR) 100 UNITS/ML UNITS SQ SCH ×2 (10:32→21:26)
[2020-09-17] MEDS: LACTATED RINGERS SOLUTION 1,000 ML/1,000 ML INFUS.BAG IV SCH (13:03)
[2020-09-17] MEDS ORDERED: ACETAMINOPHEN 1000 MG/100 ML VIAL (NON FORMULARY) IVPB PRN (15:42)
[2020-09-17] MEDS: MIDAZOLAM IN 0.9 % SOD.CHLORID 100 MG/100 ML PLAST..BAG IVPB SCH (15:54)
[2020-09-17] MEDS: PROPOFOL 1,000,000 MCG/100 ML VIAL IVPB SCH ×3 (15:54→21:27)
[2020-09-17] MEDS ORDERED: MIDAZOLAM 100 MG/100 ML MG IVPB ONE ×2 (15:58→23:38)
[2020-09-17] MEDS: FENTANYL NS IVPB 500 MCG/100 ML BAG IVPB SCH (17:53)
[2020-09-17] MEDS: ALBUTEROL SO4 0.083% IH SOL 2.5 MG/3 ML VIAL.NEB. NEB PRN (20:30)
[2020-09-18] MEDS: INSULIN SLIDING SCALE (NOVOLOG) 1 VIAL SQ SCH ×4 (01:00→17:33)
[2020-09-18] MEDS: FENTANYL NS IVPB 500 MCG/100 ML BAG IVPB SCH ×4 (01:00→21:26)
[2020-09-18] MEDS: NOREPINEPHRINE D5W PREMIX 16,000 MCG/500 ML BAG IVPB SCH (02:11)
[2020-09-18] MEDS: PIPERACILLIN/TAZOB 4.5 GM 4.5 GM in DEXTROSE 5%-WATER 100 ML IVPB SCH ×3 (02:12→17:23)
[2020-09-18] MEDS: MIDAZOLAM IN 0.9 % SOD.CHLORID 100 MG/100 ML PLAST..BAG IVPB SCH ×3 (02:12→18:12)
[2020-09-18] MEDS: PROPOFOL 1,000,000 MCG/100 ML VIAL IVPB SCH ×3 (02:12→21:25)
[2020-09-18] MEDS ORDERED: MIDAZOLAM 100 MG/100 ML MG IVPB ONE ×3 (05:06→23:38)
[2020-09-18 07:12] LABS: HEMATOCRIT 34.6 % (35.4-49); HEMOGLOBIN 11.6 GM/dL (11.7-16.9); MCH 32.2 pg (25.7-33.7); MCHC 33.5 g/dl (32.0-35.9); MEAN CELL VOLUME 96.3 fl (80-96); MEAN PLT VOLUME 9.2 fl (7.5-11.1); PLATELET COUNT 250 K/MM3 (134-434); RBC 3.59 M/mm3 (4.00-5.60); RDW 13.2 % (11.9-15.9); WHITE BLOOD COUNT 16.9 K/mm3 (4.0-10.0)
[2020-09-18 07:40] LABS: ALBUMIN 1.2 g/dl (3.4-5.0); BLOOD UREA NITROGEN 23.2 mg/dL (7-18); CALCIUM 7.9 mg/dL (8.5-10.1)
[2020-09-18 07:41] LABS: BILIRUBIN,TOTAL 0.3 mg/dL (0.2-1); MAGNESIUM 2.1 mg/dL (1.8-2.4); TOT PROT 5.1 g/dl (6.4-8.2)
[2020-09-18 07:43] LABS: CREATININE 0.6 mg/dL (0.55-1.3); PHOSPHOROUS 3.3 mg/dL (2.5-4.9)
[2020-09-18] MEDS ORDERED: PIPERACILLIN/TAZOBACTAM 4.5 GM VIAL IVPB ONE ×3 (08:34→23:38)
[2020-09-18] MEDS ORDERED: DEXTROSE 5%-WATER 100 ML IVPB ONE ×3 (08:34→23:38)
[2020-09-18] MEDS: INSULIN (LEVEMIR) 100 UNITS/ML UNITS SQ SCH ×2 (09:13→21:29)
[2020-09-18] MEDS: PANTOPRAZOLE SODIUM 40 MG VIAL IVPUSH SCH (09:13)
[2020-09-18] MEDS ORDERED: DEXTROSE 5%-0.45% SALINE 1,000 ML IV SCH (13:15)
[2020-09-18] MEDS: LACTATED RINGERS SOLUTION 1,000 ML/1,000 ML INFUS.BAG IV SCH ×2 (18:12→21:25)
[2020-09-19] MEDS: INSULIN SLIDING SCALE (NOVOLOG) 1 VIAL SQ SCH ×4 (01:00→19:25)
[2020-09-19] MEDS: PIPERACILLIN/TAZOB 4.5 GM 4.5 GM in DEXTROSE 5%-WATER 100 ML IVPB SCH ×3 (02:07→18:05)
[2020-09-19] MEDS: NOREPINEPHRINE D5W PREMIX 16,000 MCG/500 ML BAG IVPB SCH (02:07)
[2020-09-19] MEDS: PROPOFOL 1,000,000 MCG/100 ML VIAL IVPB SCH ×2 (02:09→20:26)
[2020-09-19 07:44] LABS: BASO % 0.4 % (0-2.0); EOS % 0.2 % (0-4.5); HEMATOCRIT 34.2 % (35.4-49); HEMOGLOBIN 11.4 GM/dL (11.7-16.9); LYMPH % 3.3 % (8-40); MCH 32.5 pg (25.7-33.7); MCHC 33.5 g/dl (32.0-35.9); MEAN CELL VOLUME 97.1 fl (80-96); MEAN PLT VOLUME 8.9 fl (7.5-11.1); MONO % 8.8 % (3.8-10.2); NEUT % 87.3 % (42.8-82.8); PLATELET COUNT 260 K/MM3 (134-434); RBC 3.52 M/mm3 (4.00-5.60); RDW 13.1 % (11.9-15.9); WHITE BLOOD COUNT 18.5 K/mm3 (4.0-10.0)
[2020-09-19 07:57] LABS: CALCIUM 7.9 mg/dL (8.5-10.1)
[2020-09-19 07:58] LABS: ALBUMIN 1.2 g/dl (3.4-5.0); BLOOD UREA NITROGEN 24.6 mg/dL (7-18); MAGNESIUM 2.2 mg/dL (1.8-2.4)
[2020-09-19 08:02] LABS: BILIRUBIN,TOTAL 0.3 mg/dL (0.2-1); CREATININE 0.5 mg/dL (0.55-1.3); PHOSPHOROUS 3.5 mg/dL (2.5-4.9)
[2020-09-19 08:04] LABS: TOT PROT 5.3 g/dl (6.4-8.2)
[2020-09-19] MEDS ORDERED: DEXTROSE 5%-WATER 100 ML IVPB ONE ×2 (09:03→17:50)
[2020-09-19] MEDS ORDERED: PIPERACILLIN/TAZOBACTAM 4.5 GM VIAL IVPB ONE ×2 (09:03→17:50)
[2020-09-19] MEDS: INSULIN (LEVEMIR) 100 UNITS/ML UNITS SQ SCH ×2 (09:14→21:19)
[2020-09-19] MEDS: PANTOPRAZOLE SODIUM 40 MG VIAL IVPUSH SCH (09:14)
[2020-09-19] MEDS: SODIUM ZIRCONIUM CYCLOSILICATE (LOKELMA) 10 GM PACKET PO SCH ×2 (09:14→10:20)
[2020-09-19] MEDS ORDERED: PT OWN MED DRAWER 7, Y5N ONE (10:04)
[2020-09-19] MEDS ORDERED: FUROSEMIDE 40 MG/4 ML INJECTABLE VIAL IVPUSH ONE ×3 (10:26→18:00)
[2020-09-19] MEDS ORDERED: ALBUMIN HUMAN 25% 12.5 GM/50 ML VIAL IVPB SCH (10:30)
[2020-09-19] MEDS ORDERED: ALBUMIN HUMAN 25% 100 ML VIAL IVPB ONE ×2 (11:00→18:00)
[2020-09-19] MEDS ORDERED: ALBUTEROL SO4 0.083% IH SOL 2.5 MG/3 ML VIAL.NEB. NEB PRN (12:18)
[2020-09-19] MEDS: methylPREDNISolone NA SUCC 40 MG/1 ML VIAL IVPUSH SCH ×2 (12:19→18:05)
[2020-09-19] MEDS ORDERED: ALBUTEROL SO4 0.083% IH SOL 2.5 MG/3 ML VIAL.NEB. NEB SCH (14:00)
[2020-09-19] MEDS: HEPARIN NA (PORCINE) 5,000 UNITS/ML 1ML VIAL SQ SCH ×2 (14:00→21:18)
[2020-09-19] MEDS ORDERED: PROPOFOL 1,000,000 MCG/100 ML VIAL ONE (14:11)
[2020-09-19] MEDS: ALBUTEROL SO4 2.5/IPRATROPIUM 0.5 INH SOL 3 ML VIAL.NEB. NEB SCH ×3 (15:09→20:30)
[2020-09-19 16:19] LABS: ARTERIAL BLOOD GAS BASE EXCESS 13.2 mmol/L (-2-2); ARTERIAL BLOOD GAS PO2 59.1 mmHg (80-100); ARTERIAL BLOOD GAS pH 7.251 (7.350-7.450)
[2020-09-19 16:31] LABS: ALLENS TEST POSITIVE
[2020-09-19 16:32] LABS: VENT MODE A/C; VENT RATE 18
[2020-09-19] MEDS ORDERED: ACETAMINOPHEN 1000 MG/100 ML VIAL (NON FORMULARY) IVPB PRN (16:58)
[2020-09-19] MEDS: FENTANYL NS IVPB 500 MCG/100 ML BAG IVPB SCH (17:30)
[2020-09-19] MEDS ORDERED: MIDAZOLAM 100 MG/100 ML MG IVPB ONE ×2 (18:29→20:56)
[2020-09-19] MEDS: MIDAZOLAM IN 0.9 % SOD.CHLORID 100 MG/100 ML PLAST..BAG IVPB SCH ×2 (19:25)
[2020-09-19 19:59] LABS: EPI CELLS 27 /uL (0-25.1); HYALINE CASTS 14 /uL (0-3.1); PH,URINE 5.5 (5.0-8.0); URINE APPEARANCE CLEAR; URINE BACTERIA 33 /uL (0-1359); URINE BILIRUBIN NEGATIVE (NEGATIVE); URINE COLOR YELLOW; URINE GLUCOSE (UA) TRACE (NEGATIVE); URINE KETONE NEGATIVE (NEGATIVE); URINE LEUK ESTERASE NEGATIVE (NEGATIVE); URINE NITRITE NEGATIVE (NEGATIVE); URINE PROTEIN 1+ (NEGATIVE); URINE RBC 399 /uL (0-23.9); URINE UROBILINOGEN 0.2 mg/dL (0.2-1.0); URINE WBC 14 /uL (0-25.8)
[2020-09-20] MEDS: methylPREDNISolone NA SUCC 40 MG/1 ML VIAL IVPUSH SCH ×2 (02:00→09:03)
[2020-09-20] MEDS: PIPERACILLIN/TAZOB 4.5 GM 4.5 GM in DEXTROSE 5%-WATER 100 ML IVPB SCH ×2 (02:00→09:03)
[2020-09-20] MEDS ORDERED: PIPERACILLIN/TAZOBACTAM 4.5 GM VIAL IVPB ONE ×3 (04:10→15:25)
[2020-09-20] MEDS ORDERED: DEXTROSE 5%-WATER 100 ML IVPB ONE ×3 (04:10→15:25)
[2020-09-20] MEDS: NOREPINEPHRINE D5W PREMIX 16,000 MCG/500 ML BAG IVPB SCH (04:28)
[2020-09-20] MEDS: FENTANYL NS IVPB 500 MCG/100 ML BAG IVPB SCH (05:00)
[2020-09-20] MEDS: PROPOFOL 1,000,000 MCG/100 ML VIAL IVPB SCH (05:00)
[2020-09-20] MEDS: MIDAZOLAM IN 0.9 % SOD.CHLORID 100 MG/100 ML PLAST..BAG IVPB SCH (05:00)
[2020-09-20 05:17] LABS: ARTERIAL BLD GAS O2 SATURATION 95.7 mmHg (95-98); ARTERIAL BLOOD GAS BASE EXCESS 17.5 mmol/L (-2-2); ARTERIAL BLOOD GAS PO2 91.8 mmHg (80-100); ARTERIAL BLOOD GAS pH 7.309 (7.350-7.450)
[2020-09-20 05:19] LABS: ALLENS TEST POSITIVE; VENT MODE A/C; VENT RATE 20
[2020-09-20] MEDS: HEPARIN NA (PORCINE) 5,000 UNITS/ML 1ML VIAL SQ SCH ×2 (05:48→14:09)
[2020-09-20] MEDS: INSULIN SLIDING SCALE (NOVOLOG) 1 VIAL SQ SCH ×3 (06:23→12:09)
[2020-09-20 07:13] LABS: HEMATOCRIT 27.4 % (35.4-49); HEMOGLOBIN 9.2 GM/dL (11.7-16.9); MCH 32.6 pg (25.7-33.7); MCHC 33.6 g/dl (32.0-35.9); MEAN PLT VOLUME 9.2 fl (7.5-11.1); PLATELET COUNT 208 K/MM3 (134-434); RBC 2.82 M/mm3 (4.00-5.60); RDW 12.9 % (11.9-15.9)
[2020-09-20 07:20] LABS: CHLORIDE 96 mmol/L (98-107); SODIUM 141 mmol/L (136-145)
[2020-09-20 07:28] LABS: BLOOD UREA NITROGEN 30.5 mg/dL (7-18); CALCIUM 8.2 mg/dL (8.5-10.1)
[2020-09-20 07:29] LABS: CREATININE 0.7 mg/dL (0.55-1.3); GLUCOSE,RANDOM 242 mg/dL (74-106); MAGNESIUM 2.4 mg/dL (1.8-2.4)
[2020-09-20 07:30] LABS: PHOSPHOROUS 2.7 mg/dL (2.5-4.9)
[2020-09-20 07:31] LABS: BILIRUBIN,TOTAL 0.3 mg/dL (0.2-1); SGPT/ALT 19 U/L (13-61); TOT PROT 5.4 g/dl (6.4-8.2)
[2020-09-20 07:32] LABS: ALK PHOS 70 U/L (45-117); SGOT/AST 21 U/L (15-37)
[2020-09-20 07:44] LABS: ALBUMIN 1.7 g/dl (3.4-5.0); ANION GAP 0 MMOL/L (8-16); CO2 > 45 mmol/L (21-32)
[2020-09-20] MEDS: ALBUTEROL SO4 2.5/IPRATROPIUM 0.5 INH SOL 3 ML VIAL.NEB. NEB SCH ×3 (07:55→15:45)
[2020-09-20] MEDS: PANTOPRAZOLE SODIUM 40 MG VIAL IVPUSH SCH (09:03)
[2020-09-20] MEDS: INSULIN (LEVEMIR) 100 UNITS/ML UNITS SQ SCH (09:14)
[2020-09-20] MEDS ORDERED: MIDAZOLAM 100 MG/100 ML MG IVPB ONE (10:57)
[2020-09-20] MEDS ORDERED: ALBUMIN HUMAN 25% 100 ML VIAL IVPB ONE ×2 (11:00→18:00)
[2020-09-20] MEDS: SODIUM ZIRCONIUM CYCLOSILICATE (LOKELMA) 10 GM PACKET PO SCH (11:24)
[2020-09-20] MEDS ORDERED: FUROSEMIDE 40 MG/4 ML INJECTABLE VIAL IVPUSH ONE ×2 (12:00→19:00)
[2020-09-20 12:46] LABS: ARTERIAL BLD GAS O2 SATURATION 90.5 mmHg (95-98); ARTERIAL BLOOD GAS BASE EXCESS 19.7 mmol/L (-2-2); ARTERIAL BLOOD GAS PO2 64.7 mmHg (80-100); ARTERIAL BLOOD GAS pH 7.367 (7.350-7.450)
[2020-09-20 12:48] LABS: ALLENS TEST POSITIVE
[2020-09-20 12:49] LABS: VENT MODE V; VENT RATE 22
[2020-09-20 17:33] VITALS: BP 126/67; PULSE 99; TEMP 99.1
[2020-09-20 20:51] LABS: BF WBC & OTHER NUCLEATED CELLS 517 /mm3
[2020-09-21 09:10] LABS: BODY FLUID MACROPHAGES 13 %; BODY FLUID MESOTHELIAL 3 %; BODY FLUID MONOCYTE 13 %
== END 2020-09-20 17:20 | disposition short-term general hospital (02) | DRG 207 ==
LOC: JER 20:49 → JERBED 09-07 02:01 → JICU 09-07 12:21
PROVIDERS: ADMIT Internal Medicine; ATTEND Internal Medicine
PROC: 5A1955Z Respiratory Ventilation, Greater than 96 Consecutive Hours (ICD-10-PCS; principal; 2020-09-07)
PROC: 0BH17EZ Insertion of Endotracheal Airway into Trachea, Via Natural or Artificial Opening (ICD-10-PCS; 2020-09-07)
PROC: 0DH67UZ Insertion of Feeding Device into Stomach, Via Natural or Artificial Opening (ICD-10-PCS; 2020-09-07)
PROC: 3E0G76Z Introduction of Nutritional Substance into Upper GI, Via Natural or Artificial Opening (ICD-10-PCS; 2020-09-07)
PROC: 0W9930Z Drainage of Right Pleural Cavity with Drainage Device, Percutaneous Approach (ICD-10-PCS; 2020-09-09)
PROC: 02HV33Z Insertion of Infusion Device into Superior Vena Cava, Percutaneous Approach (ICD-10-PCS; 2020-09-15)
PROC: B548ZZA Ultrasonography of Superior Vena Cava, Guidance (ICD-10-PCS; 2020-09-15)
PROC: 0W9930Z Drainage of Right Pleural Cavity with Drainage Device, Percutaneous Approach (ICD-10-PCS; 2020-09-20)
DX: J85.1 Abscess of lung with pneumonia (principal); J96.01 Acute respiratory failure with hypoxia; J96.02 Acute respiratory failure with hypercapnia; A41.9 Sepsis, unspecified organism; E87.1 Hypo-osmolality and hyponatremia; J44.1 Chronic obstructive pulmonary disease with (acute) exacerbation; E87.4 Mixed disorder of acid-base balance; J93.83 Other pneumothorax; I48.0 Paroxysmal atrial fibrillation; E11.65 Type 2 diabetes mellitus with hyperglycemia; R80.9 Proteinuria, unspecified; E87.5 Hyperkalemia
CPT/HCPCS: 31500; 36415; 36600; 49405; 71045-TC-FY; 71260-TC; 71275-TC; 76937; 80048; 80053; 80061; 81003; 82010; 82248; 82550; 82728; 82803; 82962; 83036; 83605; 83615; 83721; 83735; 83880; 84100; 84443; 84484; 85025; 85027; 85379; 85610; 85730; 86140; 86480; 86769; 86850; 86900; 86901; 87040; 87070; 87075; 87077; 87086; 87205; 87804; 87899; 93005; 93010; 93306-TC; 93308; 94002; 94640; 99285-25; C9803; G0480; J0131; J1100; J1644; U0003; U0005